=== PATIENT | female | born 1980 | race Caucasian/White ===

== ENCOUNTER 2019-10-29 15:45 | Emergency (ER) | payer SELFPAY ==
[~2019-10-29] VITALS: Ht 170.2 cm; Wt 92.1 kg
[2019-10-29 15:50] VITALS: BP 110/75
--- NOTE | 2019-10-29 15:55 | NUR ---
C/O FEVER, COUGH X 2 DAYS. TEMP 98.2 AT THIS TIME. MED HX:DENIES
--- NOTE | 2019-10-29 16:12 | NUR ---
Patient discharged with v/s stable. Written and verbal after care instructions given and explained. Patient alert, oriented and verbalized understanding of instructions. Ambulatory with steady gait. All questions addressed prior to discharge. ID band removed. Patient advised to follow up with PMD. Rx of PROMETHAZINE given. Patient educated on indication of medication including possible reaction and side effects. Opportunity to ask questions provided and answered.
== END 2019-10-29 16:12 | disposition home or self-care (01) ==
LOC: EEVIPCON 15:45 → MED 15:45
DX: R50.9 Fever, unspecified (principal); Z20.828 Contact with and (suspected) exposure to other viral communicable diseases
CPT/HCPCS: 99283; U0003